=== PATIENT | female | born 1960 | race Caucasian/White ===

== ENCOUNTER → 2017-01-16 | Day surgery (SDC) | payer BC ==
[~2017-01-16] MED LIST: ATENOLOL50 MG PO; CLARITIN10 M3 PO; COMBIVENT RESPIM4 GM INH; ETODOLAC500 MG PO; FLEXERIL10 MG PO; RIZATRIPTAN10 M2 PO; VITAMIN D50000 UNIT PO; VOLTAREN75 MG PO; [UNRECOGNIZED DRUG - REMARK]
--- NOTE | ~2017-01-16 | OR ---
Unit #: [id number] #: [id number] Patient: RIMA GORDON [id number] [address] [place], [place] [address] [id number] MR#: [id number] NAME: RIMA GORDON. ROOM: Date of Procedure: 01/16/2017 Admission Date: 01/16/2017 Surgeon: Haseeb Ronquillo M.D. : 1960 Attending Physician: Haseeb Ronquillo M.D. Primary Care Physician: Cale Bradford M.D. OPERATIVE REPORT JOB NOTE: VERIFY MRN PREOPERATIVE DIAGNOSIS Enlarging subcutaneous mass, right upper back. POSTOPERATIVE DIAGNOSIS Enlarging subcutaneous mass, right upper back. PROCEDURE PERFORMED Excision of enlarging subcutaneous mass, right upper back 5 x 5 cm with layered closure. ANESTHESIA 1% Xylocaine plain local anesthesia, Versed 2 mg, Demerol 50 mg each IV push in divided dosages with continuous cardiac and O2 saturation monitoring. 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 SPECIMENS Sent to pathology. COMPLICATIONS None apparent. CONDITION The patient tolerated the procedure well. INDICATIONS FOR PROCEDURE The patient is a 56-year-old white female, who has enlarging subcutaneous mass of the right upper back. She presents at this time for excision for pathologic diagnosis and treatment. DESCRIPTION OF PROCEDURE After obtaining informed consent as well as receiving preoperative antibiotics, the patient was brought to the operating room and after being placed in left lateral decubitus position with all areas carefully padded, had a right upper back prepped and draped in a sterile fashion. After adequate IV sedation was obtained, the area was anesthetized with 1% Xylocaine plain local anesthesia. An incision was made. It was taken down through the skin and subdermal tissues to the lesion in question. Unit #: [id number] #: [id number] Patient: RIMA GORDON The lesion was consistent with a multilobulated lipoma. It was dissected free from the surrounding structures with blunt and sharp dissection. Hemostasis was obtained with the Bovie. The wound was irrigated. The specimen was sent to pathology. The deep tissues were reapproximated with interrupted 3-0 Vicryl sutures taking a bite of the base of the wound to obliterate any space. The skin was closed with a 4-0 Vicryl subcuticular stitch. Benzoin and Steri-Strips were applied over the wound in an occlusive manner followed by dry dressing and a Tegaderm dressing. Needle counts, sponge counts, and instrument counts were all correct as reported by the scrub nurse x2. The patient went from the operating room to recovery room in stable condition. Dictated by... Sandy Denis/delmis TD: 01/16/2017 21:57 JOB #: [id number] CC: [facility] OPERATIVE REPORT X Haseeb Ronquillo MD X PROCEDURE OPERATIVE NOTE
== END | disposition home or self-care (01) ==
LOC: CSUR 05:47
DX: R22.2 Localized swelling, mass and lump, trunk (principal); M79.89 Other specified soft tissue disorders; J45.909 Unspecified asthma, uncomplicated; I10 Essential (primary) hypertension; E78.5 Hyperlipidemia, unspecified; G43.909 Migraine, unspecified, not intractable, without status migrainosus; Z87.440 Personal history of urinary (tract) infections; Z90.721 Acquired absence of ovaries, unilateral; Z88.6 Allergy status to analgesic agent; Z79.899 Other long term (current) drug therapy; Z87.891 Personal history of nicotine dependence; Z90.710 Acquired absence of both cervix and uterus; Z80.0 Family history of malignant neoplasm of digestive organs; Z83.3 Family history of diabetes mellitus; Z82.49 Family history of ischemic heart disease and other diseases of the circulatory system
CPT/HCPCS: 88304; J0690; J2175; J2250